=== PATIENT | female | born 1995 | race Caucasian/White ===

== ENCOUNTER → 2019-09-01 | Outpatient (CLI) | payer BC | LOC: MC.RAD 07:00 | DX: N63.21 Unspecified lump in the left breast, upper outer quadrant (principal) ==

== ENCOUNTER → 2020-10-06 | Outpatient (CLI) | payer BC ==
[~2020-10-06] MED LIST: EPIDUO 0.1%-2.51 GEL TP; IBU800 M1 PO; PRENATAL TABLET PO; VITAMIN B-6100 MG
== END | disposition still patient (30) ==
LOC: ZCOL.LAB
DX: Z20.828 Contact with and (suspected) exposure to other viral communicable diseases (principal)

== ENCOUNTER 2020-10-09 09:24 | Inpatient (IN) | payer BC ==
[2020-10-09] VITALS (7 sets, daily range): BP systolic 93–130; BP diastolic 54–79; PULSE 64–91; TEMP 97.9
[~2020-10-09] VITALS: Ht 175.3 cm; Wt 94.1 kg
[2020-10-09] MEDS ORDERED: PRENATAL TABLET PO (19:35)
[2020-10-09] MEDS ORDERED: EPIDUO 0.1%-2.51 GEL TP (19:36)
[2020-10-09] MEDS ORDERED: VITAMIN B-6100 MG (19:36)
--- NOTE | 2020-10-09 20:00 | NUR ---
Patient ambulatory to LDR6 with for induction of labor. She is a G1 at 39.0 weeks gestation. Patient changes into gown and wedged to left side in bed. 1929 - Dr. Bro to room to perform bedside sono. Baby was breech on 09/28 but confirmed vertex on 10/05. Bedside sono confirmed vertex by Dr. Bro. Dr. Thornton called and updated. EFMs explained and applied. FHR 130 bpm and reactive. Irritable contraction pattern per toco - patient denies feeling any contractions. VSS. Assessment complete and consents signed. Plan of care reviewed. 1949 - INT started in left hand with labs drawn from site. 1954 - SVE 050/-3. Cytotec 50mcg placed in posterior fornix of vagina. Patient oriented to room and call light.
[2020-10-09 20:34] LABS: BASO % 0.2 % (0.0-2.0); EOS # 0.2 (0.0-0.7); EOS % 1.6 % (0-4.0); GRAN # 6.1 (1.4-6.5); GRAN % 63.9 % (42.2-75.2); HEMOGLOBIN 12.6 g/dl (12.5-16.0); LYMPH # 2.4 (1.2-3.4); LYMPH % 25.6 % (20.0-51.0); MEAN CELL VOLUME 87 fl (80.0-100.0); MEAN CORPUSCULAR HEMOGLOBIN 30 pg (27.0-31.0); MEAN CORPUSCULAR HGB CONC 34 g/dl (33.0-37.0); MEAN PLATELET VOLUME 9.6 fl (7.4-10.4); MONO # 0.8 (0.1-0.6); MONO % 8.2 % (1.7-9.3); PLATELET COUNT 243 K/mm3 (130-400); RED BLOOD COUNT 4.24 M/mm3 (4.10-5.30); REDCELL DISTRIBUTION WIDTH-CV 13.4 % (11.5-14.5)
[2020-10-09 20:44] LABS: HEMATOCRIT 36.8 % (37.0-47.0)
[2020-10-10] VITALS (57 sets, daily range): BP systolic 87–137; BP diastolic 53–87; PULSE 61–101; TEMP 97.8–98.8
--- NOTE | 2020-10-10 08:36 | NUR ---
0800 PITOCIN STARTED AT [address] ORDER AND ANCEF FIRST DOSE STARTED
--- NOTE | 2020-10-10 10:25 | NUR ---
1010 DR ESCALONA AT BEDSIDE. AROM WITH AMNIOHOOK WITH LARGE ABOUT OF CLEAR FLUID NOTED.
--- NOTE | 2020-10-10 11:59 | NUR ---
1121 PATIENT READY FOR EPIDURAL PLACEMENT. SITS UP ON EDGE OF BED. PATIENT TOLERATES WELL. DENIES NEEDS. SEE ISAI HERNANDEZ NOTES FOR QUESTIONS
--- NOTE | 2020-10-10 15:16 | NUR ---
1400 PAIN IN LOW ABDOMEN THAT DOES NOT GO AWAY WITH EPIDURAL. ISAI HERNANDEZ FINANCIAL RECORDING CLERK AT BEDSIDE FOR EPIDURAL DOSE.
--- NOTE | 2020-10-10 15:35 | NUR ---
1500 SITS UP IN BED TO REPLACE EPIDURAL CATH. PATIENT CONTINUES TO NOT GET COMFORTABLE WITH EPIDURAL DOSE. PATIENT TOLERATES WELL. SEE ISAI HERNANDEZ [employer]SE GRADER NOTES FOR QUESTIONS.
--- NOTE | 2020-10-10 16:17 | NUR ---
1545 DR ESCALONA CALLED AND UPDATED ON REPLACING EPIDURAL AND SVE . NO NEW ORDERS
--- NOTE | 2020-10-10 16:19 | NUR ---
1615 DR ESCALONA NOTIFIED OF RECURRENT LATES. REPSOSITIONED PATIENT AND ORDERS TO CUT PITOCIN IN HALF. PITOCIN DECREASED TO [address] AT THIS TIME PER DR ORDER
--- NOTE | 2020-10-10 17:32 | NUR ---
1633 E /+1 DR ESCALONA CALLED AND UPDATED. WILL CALL WHEN NEED TO COME FOR DELIVERY
--- NOTE | 2020-10-10 17:33 | NUR ---
2808 PATIENT COMPLETE AND FEELING LOTS OF PRESSURE. CALLED TO COME NOW FOR DELIVERY
--- NOTE | 2020-10-10 17:34 | NUR ---
1645 PUSH WITH EACH CONTRACTION. 165 DR ESCALONA HERE FOR DELIVERY. PATIENT CONTINUES TO PUSH WITH EACH CONTRACTION. 1659 BABY GIRL BORN VIA BY DR ESCALONA. CORD CLAMPED AND CUT AND TO MOMS CHEST. STRONG CRY NOTED. 1703 PLACENTA DELIVEERED AND PITOCIN STARTED AT 333./HR PER PROTOCOL. FUNDUS MASSAGED UNTIL FIRM. [address] ESCALONA. PATIETN TOLERATES WELL. FUNDUS FIRM AND BLEEDING WNL.
[2020-10-11 00:30] VITALS: BP 102/61; PULSE 61; TEMP 98.4
[2020-10-11 07:15] VITALS: BP 91/57; PULSE 56; TEMP 97.3
--- NOTE | 2020-10-11 09:01 | NUR ---
Initial visit; Parents thanked [employer] for offering congratulations and God's blessings for the of their daughter. [employer] thanked family for choosing [facility].
[2020-10-11 13:15] VITALS: BP 98/53; PULSE 73; TEMP 97.5
[2020-10-11 15:45] VITALS: BP 98/64; PULSE 61; TEMP 99
--- NOTE | 2020-10-11 15:48 | NUR ---
Rests in bed, alert. Request pain medication. Ibuprofen 800 mg given per request and as ordered..
[2020-10-11 20:24] VITALS: BP 97/52; PULSE 64; TEMP 98.7
[2020-10-12] MEDS ORDERED: IBU800 M1 PO (08:40)
[2020-10-12 09:17] VITALS: BP 106/71; PULSE 74; TEMP 98.1
== END 2020-10-12 10:45 | disposition home or self-care (01) | DRG 807 ==
LOC: OB 09:24 → LDR 19:21 → OB 10-10 09:08
PROVIDERS: ADMIT Student in an Organized Health Care Education/Training Program
PROC: 10E0XZZ Delivery of Products of Conception, External Approach (ICD-10-PCS; principal; 2020-10-09)
PROC: 10907ZC Drainage of Amniotic Fluid, Therapeutic from Products of Conception, Via Natural or Artificial Opening (ICD-10-PCS; 2020-10-09)
PROC: 3E0P7VZ Introduction of Hormone into Female Reproductive, Via Natural or Artificial Opening (ICD-10-PCS; 2020-10-09)
PROC: 0KQM0ZZ Repair Perineum Muscle, Open Approach (ICD-10-PCS; 2020-10-09)
DX: O99.824 Streptococcus B carrier state complicating childbirth (principal); Z37.0 Single live birth; O99.52 Diseases of the respiratory system complicating childbirth; J45.909 Unspecified asthma, uncomplicated; O70.1 Second degree perineal laceration during delivery; Z3A.39 39 weeks gestation of pregnancy
CPT/HCPCS: J0690; J2590; J2795; J7120

== ENCOUNTER 2022-10-06 09:27 | Emergency (ER) | payer BC ==
[~2022-10-06] VITALS: Ht 175.3 cm; Wt 90.9 kg
[2022-10-06 10:19] LABS: COLLECTION METHOD CLEAN CATCH
[2022-10-06 10:22] LABS: BASO # 0.1 K/mm3 (0.0-0.2); BASO % 0.3 % (0.0-2.0); EOS # 0.1 K/mm3 (0.0-0.7); GRAN # 10.3 K/mm3 (1.4-6.5); GRAN % 71.9 % (42.2-75.2); HEMATOCRIT 41.8 % (37.0-47.0); HEMOGLOBIN 13.9 g/dl (12.5-16.0); LYMPH # 2.7 K/mm3 (1.2-3.4); LYMPH % 18.6 % (20.0-51.0); MEAN CELL VOLUME 86 fl (80.0-100.0); MEAN CORPUSCULAR HEMOGLOBIN 29 pg (27-31); MEAN CORPUSCULAR HGB CONC 33 g/dl (33.0-37.0); MEAN PLATELET VOLUME 9.5 fl (7.4-10.4); MONO # 1.1 K/mm3 (0.1-0.6); MONO % 7.9 % (1.7-9.3); PLATELET COUNT 386 K/mm3 (130-400); RED BLOOD COUNT 4.86 M/mm3 (4.10-5.30); REDCELL DISTRIBUTION WIDTH-CV 12.3 % (11.5-14.5)
[2022-10-06 10:34] LABS: SQUAMOUS EPITHELIAL 0-2 /hpf (0-10); URINE BACTERIA None Seen /hpf (NONE SEEN); URINE RBC 0-2 /hpf (0-2)
[2022-10-06 10:36] LABS: URINE APPEARANCE Clear (CLEAR/HAZY); URINE BLOOD Negative (NEGATIVE); URINE COLOR Yellow (YELLOW); URINE GLUCOSE Negative (NEGATIVE); URINE KETONE Negative (NEGATIVE); URINE NITRATE Negative (NEGATIVE); URINE PROTEIN(semi-quant) Negative (NEGATIVE); URINE UROBILINOGEN 0.2 E.U/dL (0.2-1.0)
[2022-10-06 10:41] LABS: ALBUMIN 4.2 gm/dL (3.5-5.0); BILIRUBIN,TOTAL 1.1 mg/dL (0.2-1.2); C-REACTIVE PROTEIN 3.21 mg/dL (0.00-0.50); CALCIUM 9.6 mg/dL (8.4-10.2); CREATININE, serum 0.74 mg/dL (0.57-1.11); POTASSIUM 3.8 mmol/L (3.5-4.5)
[2022-10-06] MEDS ORDERED: FLAGYL500 MG PO (12:55)
[2022-10-06] MEDS ORDERED: CIPRO 500MG TA500 MG PO (12:55)
[2022-10-06 13:08] VITALS: BP 123/79; PULSE 104; TEMP 99.8
== END 2022-10-06 13:09 | disposition home or self-care (01) ==
LOC: COL.ER 09:27
PROVIDERS: Nurse Practitioner
DX: K57.32 Diverticulitis of large intestine without perforation or abscess without bleeding (principal); Z88.0 Allergy status to penicillin; Z32.02 Encounter for pregnancy test, result negative
CPT/HCPCS: J7030; Q9967

== ENCOUNTER → 2024-07-28 | Outpatient (CLI) | payer BC ==
[~2024-07-28] MED LIST changes: +Albuterol 0.083% Neb Soln 2.5 MG/3 ML UD IH ONE; +CIPRO 500MG TA500 MG PO; +FLAGYL500 MG PO
== END ==
LOC: COL.CARD 07:44
DX: J45.20 Mild intermittent asthma, uncomplicated (principal)

== ENCOUNTER 2024-09-15 23:43 | Emergency (ER) | payer BC ==
[~2024-09-15] VITALS: Ht 175.3 cm; Wt 88.6 kg
[~2024-09-15 23:43] MED LIST changes: -Albuterol 0.083% Neb Soln 2.5 MG/3 ML UD IH ONE
[2024-09-16 00:05] VITALS: TEMP 98.5
[2024-09-16] MEDS ORDERED: Ondansetron 4 MG/2 ML VIAL IV ONE (00:15)
[2024-09-16] MEDS ORDERED: LR 1,000 ML IV ONE (00:15)
[2024-09-16] MEDS ORDERED: Hyoscyamine 0.125 MG Sublingual TAB SL ONE ×2 (00:45→01:30)
[2024-09-16 00:48] LABS: BASO # 0.1 K/mm3 (0.0-0.2); BASO % 0.4 % (0.0-2.0); EOS # 0.3 K/mm3 (0.0-0.7); EOS % 2.1 % (0.0-4.0); GRAN # 10.1 K/mm3 (1.4-6.5); GRAN % 74.8 % (42.2-75.2); HEMATOCRIT 42.9 % (37.0-47.0); HEMOGLOBIN 14.3 g/dl (12.5-16.0); LYMPH # 2.1 K/mm3 (1.2-3.4); LYMPH % 15.9 % (20.0-51.0); MEAN CELL VOLUME 86 fl (80.0-100.0); MEAN CORPUSCULAR HEMOGLOBIN 29 pg (27-31); MEAN CORPUSCULAR HGB CONC 33 g/dl (33.0-37.0); MEAN PLATELET VOLUME 9.3 fl (7.4-10.4); MONO # 0.9 K/mm3 (0.1-0.6); MONO % 6.5 % (1.7-9.3); PLATELET COUNT 388 K/mm3 (130-400); RED BLOOD COUNT 5.02 M/mm3 (4.10-5.30); REDCELL DISTRIBUTION WIDTH-CV 13.2 % (11.5-14.5)
[2024-09-16 00:59] LABS: COLLECTION METHOD CLEAN CATCH
[2024-09-16 01:02] LABS: ALBUMIN 4.1 g/dL (3.5-5.0); BILIRUBIN,TOTAL 0.8 mg/dL (0.2-1.2); CALCIUM 9.2 mg/dL (8.4-10.2); CREATININE, serum 0.79 mg/dL (0.57-1.11); POTASSIUM 3.8 mEq/L (3.5-4.5); TOTAL PROTEIN 7.7 g/dl (6.2-8.1)
[2024-09-16 01:03] LABS: PH 6.5 (5.0-8.5); URINE APPEARANCE CLEAR (CLEAR/HAZY); URINE BLOOD NEGATIVE (NEGATIVE); URINE COLOR YELLOW (YELLOW); URINE GLUCOSE NEGATIVE (NEGATIVE); URINE KETONE 2+ (NEGATIVE); URINE NITRATE NEGATIVE (NEGATIVE); URINE PROTEIN(semi-quant) NEGATIVE (NEGATIVE); URINE UROBILINOGEN 0.2 E.U/dL (0.2-1.0)
[2024-09-16] MEDS ORDERED: ZOFRAN ODT4 MG PO (01:21)
[2024-09-16] MEDS ORDERED: LEVSIN0.125 M1 PO (01:21)
[2024-09-16] MEDS ORDERED: Home Ondansetron ODT 4 MG #2 ODT/PACK PO ONE (01:30)
[2024-09-16 01:48] VITALS: BP 95/68; PULSE 88
== END 2024-09-16 01:48 | disposition home or self-care (01) ==
LOC: COL.ER 23:43
PROVIDERS: Emergency Medicine
DX: R11.2 Nausea with vomiting, unspecified (principal); R19.7 Diarrhea, unspecified
CPT/HCPCS: J2405; J7120